=== PATIENT | female | born 1995 | race Caucasian/White ===

== ENCOUNTER 2016-10-16 04:40 | Emergency (ER) | payer OTHER ==
[2016-10-16 04:53] VITALS: BP 147/82; PULSE 106; RESP 16; TEMP 97.5
[2016-10-16] MEDS ORDERED: predniSONE 50 MG TAB PO STA (05:03)
--- NOTE | 2016-10-16 05:05 | ED ---
General Adult HPI - General Chief complaint: Allergic Reaction Stated complaint: lip swelling Time Seen by Provider: 10/16/16 04:45 Source: patient, RN notes reviewed Mode of arrival: ambulatory Limitations: no limitations - History of Present Illness Initial comments: This is a 21-year-old female presents emergency Department with some lower lip swelling. Patient states this is happened for many years now and she is currently being worked up by thread checker oncologist. Patient states she's had no difficulty breathing or problems swallowing. Patient states she started having these lip swelling episodes when she was 13 and she gets them intermittently. Patient states sometimes her tongue swells but today it has not swollen. Patient denies any chest pain or palpitation. Patient denies any nausea vomiting. Patient denies any rashes or hives. - Related Data Previous Rx's Medication Instructions Recorded Famotidine [Pepcid] 20 mg PO DAILY #3 tablet 08/20/16 predniSONE 20 mg PO DAILY #3 tab 08/20/16 predniSONE 40 mg PO DAILY #8 tab 10/16/16 Allergies Allergy/AdvReac Type Severity Reaction Status Date / Time peanut [Peanut Butter] Allergy Unknown Verified 10/16/16 04:48 shellfish derived [Shellfish] Allergy Unknown Verified 10/16/16 04:48 Review of Systems ROS Statement: Those systems with pertinent positive or pertinent negative responses have been documented in the HPI. ROS Other: All systems not noted in ROS Statement are negative. Past Medical History Past Medical History: No Reported History Additional Past Medical History / Comment(s): pre-diabetes History of Any Multi-Drug Resistant Organisms: None Reported Past Surgical History: Adenoidectomy, Orthopedic Surgery, Tonsillectomy Additional Past Surgical History / Comment(s): Femur Past Psychological History: Anxiety, Bipolar, Depression Smoking Status: Current every day smoker Past Alcohol Use History: Rare Past Drug Use History: None Reported General Exam - General Exam Comments Initial Comments: GENERAL: Patient is well-developed and well-nourished. Patient is nontoxic and well- hydrated and is in no acute distress. ENT: Neck is soft and supple. No significant lymphadenopathy is noted. Oropharynx is clear. Patient's lower lip is swollen on the left side only. Moist mucous membranes. Neck has full range of motion without eliciting any pain. EYES: The sclera were anicteric and conjunctiva were pink and moist. Extraocular movements were intact and pupils were equal round and reactive to light. Eyelids were unremarkable. PULMONARY: Unlabored respirations. Good breath sounds bilaterally. No audible rales rhonchi or wheezing was noted. CARDIOVASCULAR: There is a regular rate and rhythm without any murmurs gallops or rubs. y SKIN: Skin is clear with no lesions or rashes and otherwise unremarkable. NEUROLOGIC: Patient is alert and oriented x3. Cranial nerves II through XII are grossly intact. Motor and sensory are also intact. Normal speech, volume and content. Symmetrical smile. MUSCULOSKELETAL: Normal extremities with adequate strength and full range of motion. No lower extremity swelling or edema. No calf tenderness. PSYCHIATRIC: Normal psychiatric evaluation. Limitations: no limitations Course Vital Signs 10/16/16 04:48 Temperature 97.5 F L Pulse Rate 106 H Respiratory 16 Rate Blood Pressure 147/82 O2 Sat by Pulse 98 Oximetry Disposition Clinical Impression: Angioedema Disposition: HOME SELF-CARE Condition: Good Instructions: Angioedema (ED) Prescriptions: predniSONE 40 mg PO DAILY #8 tab Referrals: Marcy Mack MD [Primary Care Provider] - 1-2 days Time of Disposition: 05:05
== END 2016-10-16 05:16 | disposition home or self-care (01) ==
LOC: EC 04:40
DX: T78.3XXA Angioneurotic edema, initial encounter (principal); F17.200 Nicotine dependence, unspecified, uncomplicated; R73.03 Prediabetes
CPT/HCPCS: 99283; J7512

== ENCOUNTER 2016-10-28 05:51 | Observation (INO) | payer OTHER ==
[2016-10-28] MEDS ORDERED: SODIUM CHLORIDE 0.9% 500 ML IV STA ×2 (06:02→07:27)
[2016-10-28] MEDS ORDERED: ONDANSETRON 4 MG/2 ML VIAL IVP STA (06:02)
--- NOTE | 2016-10-28 06:07 | ED ---
Abdominal Pain HPI - General Source: patient, RN notes reviewed Mode of arrival: EMS Limitations: no limitations - History of Present Illness Onset/Timin -: hour(s) Location: diffuse Severity: mild Quality: cramping Consistency: intermittent, now resolved Improves With: nothing Worsens With: nothing Context: sick contacts Associated Symptoms: nausea, vomiting, diarrhea <Shilo Mortensen - Last Filed: 10/28/16 06:03> <Raymond Garcia - Last Filed: 10/28/16 09:50> - General Stated Complaint: N/V/D Time Seen by Provider: 10/28/16 05:53 - History of Present Illness Initial Comments: This patient is a 21-year-old woman who complains of having multiple rounds of vomiting and diarrhea. The patient states she was in her usual state of health until around 2 this morning. She woke up feeling nauseated and then began to have vomiting around 2:30. She has also been having a number of rounds of diarrhea. She believes she has had a total of 8-12 episodes of vomiting and nearly as many episodes of diarrhea. She denies seeing any blood there rate she has had a little bit of abdominal cramping that is intermittent and mild intensity. She is not having any pain at the moment. Patient states that her brother had similar symptoms couple of days ago. (Shilo Mortensen) - Related Data Home Medications Medication Instructions Recorded Confirmed No Known Home Medications [No 10/28/16 10/28/16 Known Home Medications] Allergies Allergy/AdvReac Type Severity Reaction Status Date / Time peanut [Peanut Butter] Allergy Unknown Verified 10/28/16 07:35 shellfish derived [Shellfish] Allergy Unknown Verified 10/28/16 07:35 Review of Systems ROS Other: All systems not noted in ROS Statement are negative. Constitutional: Denies: fever, chills Respiratory: Denies: cough, dyspnea Cardiovascular: Denies: chest pain, palpitations, edema Gastrointestinal: Reports: as per HPI, abdominal pain, nausea, vomiting, diarrhea. Denies: constipation, melena, hematochezia Genitourinary: Reports: abnormal menses. Denies: dysuria, hematuria Musculoskeletal: Denies: back pain Skin: Denies: rash Neurological: Denies: headache, weakness, numbness <Shilo Mortensen - Last Filed: 10/28/16 06:03> ROS Other: All systems not noted in ROS Statement are negative. <Raymond Garcia - Last Filed: 10/28/16 09:50> ROS Statement: Those systems with pertinent positive or pertinent negative responses have been documented in the HPI. Past Medical History Past Medical History: No Reported History Additional Past Medical History / Comment(s): pre-diabetes History of Any Multi-Drug Resistant Organisms: None Reported Past Surgical History: Adenoidectomy, Orthopedic Surgery, Tonsillectomy Additional Past Surgical History / Comment(s): Femur Past Psychological History: Anxiety, Bipolar, Depression Smoking Status: Current every day smoker Past Alcohol Use History: Rare Past Drug Use History: None Reported <Shilo Mortensen - Last Filed: 10/28/16 06:03> General Exam Limitations: no limitations General appearance: alert, in no apparent distress Head exam: Present: atraumatic Eye exam: Present: normal appearance. Absent: scleral icterus, conjunctival injection ENT exam: Present: normal oropharynx Respiratory exam: Present: normal lung sounds bilaterally. Absent: respiratory distress, wheezes, rales, rhonchi, stridor Cardiovascular Exam: Present: regular rate, normal rhythm, normal heart sounds. Absent: systolic murmur, diastolic murmur, rubs, gallop GI/Abdominal exam: Present: soft. Absent: distended, tenderness, guarding, rebound Extremities exam: Present: normal inspection, normal capillary refill. Absent: pedal edema, calf tenderness Back exam: Present: normal inspection. Absent: CVA tenderness (R), CVA tenderness (L) Neurological exam: Present: alert Skin exam: Present: warm, dry, intact, normal color. Absent: rash <Shilo Mortensen - Last Filed: 10/28/16 06:03> Course <Shilo Mortensen - Last Filed: 10/28/16 06:03> <Raymond Garcia - Last Filed: 10/28/16 09:50> Vital Signs 10/28/16 10/28/16 10/28/16 05:56 09:07 09:08 Temperature 98.2 F 99.5 F Pulse Rate 78 107 H 101 H Respiratory 20 14 Rate Blood Pressure 126/72 112/61 O2 Sat by Pulse 98 99 Oximetry 10/28/16 09:14 Temperature Pulse Rate 106 H Respiratory Rate Blood Pressure O2 Sat by Pulse Oximetry - Reevaluation(s) Reevaluation #1: 10/28/16 09:50 EKG shows sinus tachycardia 113. OH 162. QRS 76. QT 332. QTC 455. Normal axis. Normal QRS. Normal ST-T. Case was discussed with Dr. villegas, who will admit for Dr. Vibha Chairez. (Raymond Garcia) Medical Decision Making <StefanysegundoShilo - Last Filed: 10/28/16 06:03> - Lab Data Result diagrams: 10/28/16 06:15 10/28/16 06:50 - Radiology Data Radiology results: report reviewed (Computed tomography scan abdomen pelvis shows normal appendix. Prominent lobe in the liver. Mildly prominent proximal small bowel May reflect enteritis.) <Raymond Garcia - Last Filed: 10/28/16 09:50> - Medical Decision Making Patient was reevaluated by myself, Dr. Garcia. Patient complains of being thirsty. Patient does not take potassium supplements and has no history of hyperkalemia. Abdomen is soft with mild tenderness in the epigastric and right lower quadrant. Computed tomography scan was ordered. Dr. villegas paged for admission for hyperkalemia. (Raymond Garcia) - Lab Data Lab Results 10/28/16 10/28/16 10/28/16 Range/Units 06:15 06:50 07:20 WBC 26.9 H* (4.0-11.0) k/uL RBC 5.44 H (3.80-5.40) m/uL Hgb 14.9 (11.4-16.0) gm/dL Hct 46.3 H (34.0-46.0) % MCV 85.1 (80.0-100.0) fL MCH 27.5 (25.0-35.0) pg MCHC 32.3 (31.0-37.0) g/dL RDW 13.0 (11.5-15.5) % Plt Count 449 (150-450) k/uL Neutrophils % 89 % Lymphocytes % 4 % Monocytes % 6 % Eosinophils % 1 % Basophils % 0 % Neutrophils # 23.9 H (1.3-7.7) k/uL Lymphocytes # 1.1 (1.0-4.8) k/uL Monocytes # 1.5 H (0-1.0) k/uL Eosinophils # 0.2 (0-0.7) k/uL Basophils # 0.1 (0-0.2) k/uL Sodium 140 (137-145) mmol/L Potassium 6.6 H* (3.5-5.1) mmol/L Chloride 108 H (98-107) mmol/L Carbon Dioxide 22 (22-30) mmol/L Anion Gap 10 mmol/L BUN 13 (7-17) mg/dL Creatinine 0.73 (0.52-1.04) mg/dL Est GFR (MDRD) Af Amer >60 (>60 ml/min/1.73 sqM) Est GFR (MDRD) Non-Af >60 (>60 ml/min/1.73 sqM) Glucose 133 H (74-99) mg/dL Calcium 9.0 (8.4-10.2) mg/dL Total Bilirubin 0.8 (0.2-1.3) mg/dL AST 19 (14-36) U/L ALT 35 (9-52) U/L Alkaline Phosphatase 60 (38-126) U/L Total Protein 6.8 (6.3-8.2) g/dL Albumin 3.9 (3.5-5.0) g/dL Urine Color Urine Appearance (Clear) Urine pH (5.0-8.0) Ur Specific [place] (1.001-1.035) Urine Protein (Negative) Urine Glucose (UA) (Negative) Urine Ketones (Negative) Urine Blood (Negative) Urine Nitrate (Negative) Urine Bilirubin (Negative) Urine Urobilinogen (<2.0) mg/dL Ur Leukocyte Esterase (Negative) Urine RBC (0-5) /hpf Urine WBC (0-5) /hpf Ur Squamous Epith Cells (0-4) /hpf Urine Bacteria (None) /hpf Hyaline Casts (0-2) /lpf Urine Mucus (None) /hpf Urine HCG, Qual Not Detected (Not Detectd) 10/28/16 Range/Units 07:20 WBC (4.0-11.0) k/uL RBC (3.80-5.40) m/uL Hgb (11.4-16.0) gm/dL Hct (34.0-46.0) % MCV (80.0-100.0) fL MCH (25.0-35.0) pg MCHC (31.0-37.0) g/dL RDW (11.5-15.5) % Plt Count (150-450) k/uL Neutrophils % % Lymphocytes % % Monocytes % % Eosinophils % % Basophils % % Neutrophils # (1.3-7.7) k/uL Lymphocytes # (1.0-4.8) k/uL Monocytes # (0-1.0) k/uL Eosinophils # (0-0.7) k/uL Basophils # (0-0.2) k/uL Sodium (137-145) mmol/L Potassium (3.5-5.1) mmol/L Chloride (98-107) mmol/L Carbon Dioxide (22-30) mmol/L Anion Gap mmol/L BUN (7-17) mg/dL Creatinine (0.52-1.04) mg/dL Est GFR (MDRD) Af Amer (>60 ml/min/1.73 sqM) Est GFR (MDRD) Non-Af (>60 ml/min/1.73 sqM) Glucose (74-99) mg/dL Calcium (8.4-10.2) mg/dL Total Bilirubin (0.2-1.3) mg/dL AST (14-36) U/L ALT (9-52) U/L Alkaline Phosphatase (38-126) U/L Total Protein (6.3-8.2) g/dL Albumin (3.5-5.0) g/dL Urine Color Yellow Urine Appearance Cloudy H (Clear) Urine pH 5.5 (5.0-8.0) Ur Specific [place] 1.025 (1.001-1.035) Urine Protein 1+ H (Negative) Urine Glucose (UA) Negative (Negative) Urine Ketones 2+ H (Negative) Urine Blood Small H (Negative) Urine Nitrate Negative (Negative) Urine Bilirubin 1+ H (Negative) Urine Urobilinogen 2.0 (<2.0) mg/dL Ur Leukocyte Esterase Small H (Negative) Urine RBC 10 H (0-5) /hpf Urine WBC 6 H (0-5) /hpf Ur Squamous Epith Cells 13 H (0-4) /hpf Urine Bacteria Rare H (None) /hpf Hyaline Casts 7 H (0-2) /lpf Urine Mucus Few H (None) /hpf Urine HCG, Qual (Not Detectd) Disposition <Shilo Mortensen - Last Filed: 10/28/16 06:03> <Raymond Garcia - Last Filed: 10/28/16 09:50> Clinical Impression: Hyperkalemia, Intractable vomiting Disposition: ADMITTED IP TO THIS HOSP
[2016-10-28 06:36] LABS: Basophils # (A) 0.1 k/uL (0-0.2); Basophils % (A) 0 %; CH 27.6; CHCM 32.5; Eosinophils # (A) 0.2 k/uL (0-0.7); Eosinophils % (A) 1 %; HCT 46.3 % (34.0-46.0); HDW 2.36; HGB 14.9 gm/dL (11.4-16.0); Luc # (Auto) 0.15; Luc % (Auto) 1; Lymphocytes # (A) 1.1 k/uL (1.0-4.8); Lymphocytes % (A) 4 %; MCH 27.5 pg (25.0-35.0); MCHC 32.3 g/dL (31.0-37.0); MCV 85.1 fL (80.0-100.0); Mean Platelet Volume 7.1; Monocytes # (A) 1.5 k/uL (0-1.0); Monocytes % (A) 6 %; Neutrophils # (A) 23.9 k/uL (1.3-7.7); Neutrophils % (A) 89 %; RBC 5.44 m/uL (3.80-5.40)
[2016-10-28 06:37] LABS: WBC 26.9 k/uL (4.0-11.0)
[2016-10-28 07:06] LABS: ALT 35 U/L (9-52); AST 19 U/L (14-36); Alkaline Phosphatase 60 U/L (38-126); Anion Gap 10 mmol/L; Blood Urea Nitrogen 13 mg/dL (7-17); Carbon Dioxide 22 mmol/L (22-30); Chloride 108 mmol/L (98-107); Glucose 133 mg/dL (74-99); Non-African American GFR(MDRD) >60 (>60 ml/min/1.73 sqM); Sodium 140 mmol/L (137-145); Total Bilirubin 0.8 mg/dL (0.2-1.3); Total Protein 6.8 g/dL (6.3-8.2)
[2016-10-28 07:07] LABS: Potassium 6.6 mmol/L (3.5-5.1)
[2016-10-28] MEDS ORDERED: RX INFO: IV CONTRAST WAS GIVEN 1 EACH MISC MISCELLANE PRN (07:27)
[2016-10-28] MEDS ORDERED: SODIUM BICARB 8.4% 50 ML SYR (1 MEQ/ML) IV STA (07:27)
[2016-10-28] MEDS ORDERED: INSULIN REGULAR 100 UNIT/ML VIAL IV ONE (07:29)
[2016-10-28] MEDS ORDERED: DEXTROSE 50%-WATER 50 ML SYRINGE IVP STA (07:29)
[2016-10-28] MEDS ORDERED: CALCIUM GLUCONATE 1,000 MG in SODIUM CHLORIDE 0.9% 100 ML IVPB ONE (07:29)
[2016-10-28] MEDS ORDERED: ALBUTEROL NEBULIZED 2.5 MG/3 ML INHALATION STA (07:30)
[2016-10-28 07:46] LABS: Appearance,Urine Cloudy (Clear); Bacteria,Urine Rare /hpf; Bilirubin,Urine 1+ (Negative); Glucose,Urine (UA) Negative (Negative); Ketones,Urine 2+ (Negative); Leukocyte Esterase,Urine Small (Negative); Mucus,Urine Few /hpf; Nitrite,Urine Negative (Negative); PH, Urine 5.5 (5.0-8.0); Particle Count 23886; Protein,Urine 1+ (Negative); RBC,Urine 10 /hpf (0-5); Specific Gravity,Urine 1.025 (1.001-1.035); Squamous Epithelial Cell,Urine 13 /hpf (0-4); UA Billing (MACRO vs. MICRO) MICRO; WBC,Urine 6 /hpf (0-5)
--- NOTE | 2016-10-28 08:30 | CT ---
EXAMINATION TYPE: CT abdomen pelvis w con DATE OF EXAM: 10/28/2016 8:22 AM REFERENCE: Previous noncontrast study dated 02/14/2010. HISTORY: Pain HISTORY: C/O Nausea, Vomiting, and Diarrhea REFERENCE: NONE CT DLP: 2555.1 mGy Automated exposure control for dose reduction was used. TECHNIQUE: Helical acquisition through the abdomen and pelvis was obtained following the oral ingesti on of without Oral Contrast and following intravenous administration of 100 mL of Omnipaque 300. The data was reformatted in axial, coronal and sagittal projections. FINDINGS: Visualized portions the lungs are clear. There is no pleural or pericardial fluid. Within the abdomen, the liver measures 24 cm. This is largely secondary to a Benedict's lobe. The gallb ladder is unremarkable. There are several small splenules within the hilus of the spleen. Both adrenal glands are normal. The pancreas is unremarkable. Both kidneys demonstrate function and appear morphologically normal. There is no significant retroperitoneal, iliac or inguinal adenopathy. Uterus and ovaries are unremarkable. The bladder is not distended. The right side of the colon is largely fluid-filled. The appendix is normal. There is no significant diverticular change. Small bowel loops are mildly prominent proximally and normal in caliber distally. No free fluid and no free air is seen. IMPRESSION: 1. NORMAL APPENDIX. 2. PROMINENT BENEDICT'S LOBE OF THE LIVER. 3. MILDLY PROMINENT PROXIMAL SMALL BOWEL MAY REFLECT ENTERITIS. PLEASE CORRELATE CLINICALLY.
[2016-10-28] MEDS ORDERED: NALOXONE 0.4 MG/ML 1 ML VIAL IV PRN (08:45)
[2016-10-28] MEDS ORDERED: ONDANSETRON 4 MG/2 ML VIAL IVP PRN (08:45)
[2016-10-28] MEDS: SODIUM CHLORIDE 0.9% 1,000 ML IV SCH ×2 (08:52→19:00)
[2016-10-28] MEDS ORDERED: PANTOPRAZOLE 40 MG/10 ML VIAL IV SCH (09:00)
[2016-10-28] MEDS ORDERED: SODIUM POLYSTYRENE SULFONATE 15 GM/60 ML BOTTLE PO STA (09:37)
[2016-10-28 11:08] LABS: Manual Review Performed
[2016-10-28 14:42] LABS: Anion Gap 15 mmol/L; Blood Urea Nitrogen 12 mg/dL (7-17); Calcium 8.9 mg/dL (8.4-10.2); Carbon Dioxide 19 mmol/L (22-30); Chloride 106 mmol/L (98-107); Glucose 144 mg/dL (74-99); Non-African American GFR(MDRD) >60 (>60 ml/min/1.73 sqM); Potassium 4.2 mmol/L (3.5-5.1); Sodium 140 mmol/L (137-145)
[2016-10-28 15:12] VITALS: RESP 16
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
[2016-10-28] MEDS: ENOXAPARIN 40 MG/0.4 ML SYRINGE SQ SCH (18:24)
[2016-10-28 19:58] LABS: INR 1.1 (<1.1); Partial Thromboplastin Time 25.4 sec (22.0-30.0); Prothrombin Time 10.8 sec (9.0-12.0)
[2016-10-29 00:24] LABS: Glucose,Whole Blood 87 mg/dL (75-99)
[2016-10-29] MEDS: SODIUM CHLORIDE 0.9% 1,000 ML IV SCH ×2 (04:45→14:51)
[2016-10-29] MEDS ORDERED: PANTOPRAZOLE 40 MG TABLET PO SCH (07:30)
[2016-10-29 07:42] VITALS: PULSE 93
[2016-10-29 08:50] LABS: Basophils % (A) 0 %; CH 27.4; CHCM 31.7; Eosinophils # (A) 0.4 k/uL (0-0.7); Eosinophils % (A) 4 %; HCT 41.8 % (34.0-46.0); HDW 2.18; HGB 13.4 gm/dL (11.4-16.0); Luc # (Auto) 0.28; Luc % (Auto) 3; Lymphocytes # (A) 2.8 k/uL (1.0-4.8); Lymphocytes % (A) 26 %; MCH 27.8 pg (25.0-35.0); MCV 86.9 fL (80.0-100.0); Mean Platelet Volume 6.4; Monocytes # (A) 0.8 k/uL (0-1.0); Monocytes % (A) 8 %; Neutrophils # (A) 6.3 k/uL (1.3-7.7); Neutrophils % (A) 59 %; RBC 4.81 m/uL (3.80-5.40); RDW 13.1 % (11.5-15.5); WBC 10.8 k/uL (4.0-11.0); WBC (Perox) 11.33
[2016-10-29 09:18] LABS: Anion Gap 7 mmol/L; Blood Urea Nitrogen 7 mg/dL (7-17); Carbon Dioxide 27 mmol/L (22-30); Chloride 107 mmol/L (98-107); Glucose 92 mg/dL (74-99); Non-African American GFR(MDRD) >60 (>60 ml/min/1.73 sqM); Potassium 4.7 mmol/L (3.5-5.1); Sodium 141 mmol/L (137-145)
[2016-10-29] MEDS: ENOXAPARIN 40 MG/0.4 ML SYRINGE SQ SCH (09:28)
[2016-10-29 15:44] VITALS: BP 147/74; TEMP 97.3
--- NOTE | 2016-10-30 15:30 | DS ---
DATE OF ADMISSION: 10/28/2016 DATE OF DISCHARGE: 10/29/2016 FINAL DIAGNOSES: 1. Acute severe gastroenteritis, probably food poisoning, present on admission. 2. Sinus tachycardia, from dehydration. 3. Hyperkalemia, could be from supplemental drinks. 4. Moderate obesity, body mass index of 44.9. 5. Chronic nicotine dependence. Patient is a cigarette smoker. HOSPITAL COURSE: This patient presented with severe gastroenteritis from food poisoning, did well with IV fluids. Patient doing much better, up and about by the time of discharge. Patient counseled against smoking and weight loss. On exam, lungs are clear. CARDIOVASCULAR: First and second sounds are normal. DISCHARGE MEDICATIONS: None. Follow up with Dr. Mack in 3 days.
== END 2016-10-29 16:40 | disposition home or self-care (01) ==
LOC: EC 05:51 → INTOOBSV 08:45 → 4MS4W 08:45 → OBSVTOIN 08:45 → 4MS4W 11:31
PROVIDERS: ADMIT Hospitalist; ATTEND Hospitalist
DX: A05.9 Bacterial foodborne intoxication, unspecified (principal); Z68.41 Body mass index [BMI] 40.0-44.9, adult; E87.5 Hyperkalemia; E66.01 Morbid (severe) obesity due to excess calories; E86.0 Dehydration; F17.210 Nicotine dependence, cigarettes, uncomplicated; F32.9 Major depressive disorder, single episode, unspecified; F41.9 Anxiety disorder, unspecified; Z81.3 Family history of other psychoactive substance abuse and dependence
CPT/HCPCS: 96361; 96365; 96375; 99285; 36415; 94640; 93005; 80053; 80048 ×2; 83605; 85025 ×2; 85610; 85730; 81001; 81025; 87086; 87329; 87328; 80299; 74177; G0378 ×2; J2405; J1650 ×2; Q9967; J0610; C9113; 96372

== ENCOUNTER → 2016-11-08 | Outpatient (CLI) | payer OTHER ==
[2016-11-08 15:49] LABS: CH 27.8; CHCM 32.9; HCT 42.4 % (34.0-46.0); HDW 2.42; HGB 13.8 gm/dL (11.4-16.0); MCH 27.6 pg (25.0-35.0); MCHC 32.5 g/dL (31.0-37.0); Mean Platelet Volume 7.4; RBC 4.99 m/uL (3.80-5.40); WBC 10.4 k/uL (4.0-11.0)
== END | disposition home or self-care (01) ==
LOC: LABWHC1 15:09
PROVIDERS: ATTEND Allergy & Immunology
DX: T78.3XXA Angioneurotic edema, initial encounter (principal); R10.9 Unspecified abdominal pain
CPT/HCPCS: 36415; 85027; 86160; 86161

== ENCOUNTER 2023-10-02 22:00 | Emergency (ER) | payer OTHER ==
[2023-10-02 22:26] VITALS: BP 143/75; PULSE 96; RESP 18; TEMP 98.8
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
[2023-10-03 00:27] LABS: Basophils # (A) 0.1 k/uL (0-0.2); Basophils % (A) 0 %; Eosinophils # (A) 0.2 k/uL (0-0.7); Eosinophils % (A) 1 %; HCT 39.5 % (34.0-46.0); HGB 13.4 gm/dL (11.4-16.0); Lymphocytes # (A) 4.6 k/uL (1.0-4.8); Lymphocytes % (A) 29 %; MCH 29.4 pg (25.0-35.0); MCHC 33.9 g/dL (31.0-37.0); MCV 86.9 fL (80.0-100.0); Mean Platelet Volume 6.8; Monocytes # (A) 0.8 k/uL (0-1.0); Monocytes % (A) 5 %; Neutrophils # (A) 10.2 k/uL (1.3-7.7); Neutrophils % (A) 63 %; Platelet Count 434 k/uL (150-450); RBC 4.55 m/uL (3.80-5.40); RDW 12.7 % (11.5-15.5); WBC 16.1 k/uL (3.8-10.6)
[2023-10-03 00:39] LABS: ALT 23 U/L (4-34); AST 22 U/L (14-36); African American GFR (CKD) >90 (>60 ml/min/1.73 sqM); Albumin 4.6 g/dL (3.5-5.0); Alkaline Phosphatase 64 U/L (38-126); Anion Gap 13 mmol/L; Blood Urea Nitrogen 12 mg/dL (7-17); Calcium 9.6 mg/dL (8.4-10.2); Carbon Dioxide 20 mmol/L (22-30); Chloride 103 mmol/L (98-107); Glucose 89 mg/dL (74-99); Non-African American GFR(CKD) >90 (>60 ml/min/1.73 sqM); Potassium 3.5 mmol/L (3.5-5.1); Sodium 136 mmol/L (137-145); Total Bilirubin 0.4 mg/dL (0.2-1.3); Total Protein 7.3 g/dL (6.3-8.2)
[2023-10-03 00:50] LABS: INR 0.9 (<1.2); Partial Thromboplastin Time 24.7 sec (22.0-30.0); Prothrombin Time 10.5 sec (10.0-12.5)
[2023-10-03 00:59] LABS: Appearance,Urine Clear (Clear); Bilirubin,Urine Negative (Negative); Blood,Urine Negative (Negative); Color,Urine Yellow; Glucose,Urine (UA) Negative (Negative); Ketones,Urine Trace (Negative); Leukocyte Esterase,Urine Negative (Negative); Nitrite,Urine Negative (Negative); PH, Urine 5.5 (5.0-8.0); Protein,Urine Trace (Negative); Specific Gravity,Urine 1.032 (1.001-1.035); Urobilinogen,Urine <2.0 mg/dL (<2.0)
--- NOTE | 2023-10-03 00:59 | US ---
EXAM: US , Transvaginal CLINICAL HISTORY: ITS.REASON US Reason: 6 wk preg bleeding, cramping TECHNIQUE: Real-time transvaginal obstetrical ultrasound of the maternal pelvis and a first trimester with image documentation. Transvaginal imaging was used for better evaluation of the fetus and adnexa. COMPARISON: No relevant prior studies available. FINDINGS: No intrauterine . Small cystic focus may represent a very early gestational sac. No yolk sac identified. Short-term repeat ultrasound recommended. The uterus measures 7.3 x 5.9 x 3.9 cm. The right ovary measures 1.8 x 1.6 x 2.2 cm. The left ovary measures 4.3 x 3.1 x 1.9 cm Suspected corpus luteum cyst on the left measures 2.3 x 2.2 x 2.0 cm. No free fluid in the pelvis. IMPRESSION: No intrauterine . Small cystic focus may represent a very early gestational sac. No yolk sac identified. Short-term repeat ultrasound recommended.
== END 2023-10-03 01:59 | disposition home or self-care (01) ==
LOC: EC 22:00
DX: O20.0 Threatened abortion (principal); O99.331 Smoking (tobacco) complicating pregnancy, first trimester; F17.200 Nicotine dependence, unspecified, uncomplicated; O99.321 Drug use complicating pregnancy, first trimester; F12.90 Cannabis use, unspecified, uncomplicated; Z3A.01 Less than 8 weeks gestation of pregnancy; Z91.013 Allergy to seafood; Z91.010 Allergy to peanuts; Z88.8 Allergy status to other drugs, medicaments and biological substances
CPT/HCPCS: 36415; 76801; 80053; 81003; 84702; 85025; 85610; 85730; 86900; 86901; 99284

== ENCOUNTER 2023-11-21 01:09 | Emergency (ER) | payer OTHER ==
[2023-11-21 01:59] LABS: Basophils # (A) 0.1 k/uL (0-0.2); Basophils % (A) 0 %; Eosinophils # (A) 0.4 k/uL (0-0.7); Eosinophils % (A) 3 %; HCT 38.1 % (34.0-46.0); Lymphocytes # (A) 3.6 k/uL (1.0-4.8); Lymphocytes % (A) 29 %; MCH 29.3 pg (25.0-35.0); MCHC 34.2 g/dL (31.0-37.0); MCV 85.9 fL (80.0-100.0); Mean Platelet Volume 6.6; Monocytes # (A) 0.7 k/uL (0-1.0); Monocytes % (A) 6 %; Neutrophils # (A) 7.7 k/uL (1.3-7.7); Neutrophils % (A) 61 %; Platelet Count 411 k/uL (150-450); RBC 4.44 m/uL (3.80-5.40); RDW 12.5 % (11.5-15.5); WBC 12.6 k/uL (3.8-10.6)
[2023-11-21 02:06] LABS: Potassium 3.7 mmol/L (3.5-5.1)
[2023-11-21 02:07] LABS: ALT 15 U/L (4-34); AST 18 U/L (14-36); African American GFR (CKD) >90 (>60 ml/min/1.73 sqM); Albumin 3.8 g/dL (3.5-5.0); Alkaline Phosphatase 54 U/L (38-126); Anion Gap 6 mmol/L; Blood Urea Nitrogen 9 mg/dL (7-17); Calcium 9.6 mg/dL (8.4-10.2); Carbon Dioxide 22 mmol/L (22-30); Chloride 106 mmol/L (98-107); Glucose 92 mg/dL (74-99); Non-African American GFR(CKD) >90 (>60 ml/min/1.73 sqM); Sodium 134 mmol/L (137-145); Total Bilirubin 0.2 mg/dL (0.2-1.3); Total Protein 6.6 g/dL (6.3-8.2)
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
--- NOTE | 2023-11-21 04:19 | US ---
EXAM: US First Trimester , Transabdominal CLINICAL HISTORY: ITS.REASON US Reason: 12 wks . vag bleeding TECHNIQUE: Real-time transabdominal obstetrical ultrasound of the maternal pelvis and a first trimester with image documentation. COMPARISON: US 1st Trimester Transabdominal dated 10/02/23 FINDINGS: Viable intrauterine twin . TWIN A: CRL: 5.35cm corresponding to 12 weeks 0 days. RODRIGUEZ 06/04/2024 Heart Rate: 176 bpm TWIN B: CRL: 5.32cm corresponding to 12 weeks 0 days. RODRIGUEZ 06/04/2024 Heart Rate: 171 bpm Cervix 2.8 cm. Uterus: 10.2 x 10.5 x 6.5cm Right Ovary: 3.5 x 2.1 x 2.1cm Left Ovary: 4.6 x 2.9 x 2.3cm No free fluid. IMPRESSION: Viable twin intrauterine , both 12 weeks 0 days.
[2023-11-21 04:58] VITALS: BP 120/81; PULSE 70; RESP 18; TEMP 98
== END 2023-11-21 04:45 | disposition home or self-care (01) ==
LOC: EC 01:09
DX: O20.9 Hemorrhage in early pregnancy, unspecified (principal); O99.331 Smoking (tobacco) complicating pregnancy, first trimester; F17.200 Nicotine dependence, unspecified, uncomplicated; O99.321 Drug use complicating pregnancy, first trimester; F12.90 Cannabis use, unspecified, uncomplicated; Z3A.12 12 weeks gestation of pregnancy; Z91.010 Allergy to peanuts; Z88.8 Allergy status to other drugs, medicaments and biological substances; Z91.013 Allergy to seafood
CPT/HCPCS: 36415; 76801; 76802; 80053; 84702; 85025; 86850; 86900; 86901; 99284